=== PATIENT | female | born 1985 | race Caucasian/White ===

== ENCOUNTER 2018-12-16 16:39 | Emergency (ER) | payer BC, MEDICAID ==
[~2018-12-16] VITALS: Wt 60.0 kg
[~2018-12-16 16:39] MED LIST: CALC1TAB32 PO; FERR-55 PO; FOLI-49 PO; IBUP-1542 PO; PREN1TAB49 PO
[2018-12-16 16:41] VITALS: BP 160/63; PULSE 64; RESP 18
[2018-12-16] MEDS ORDERED: HYDROCODONE/APAP (5/325) TAB PO ONE (17:30)
[2018-12-16] MEDS ORDERED: KETOROLAC 60 MG INJ IM STA (19:02)
[2018-12-16] MEDS ORDERED: NAPR-985 PO (19:04)
--- NOTE | 2018-12-21 23:15 | ERD ---
ER Documentation Chief Complaint Chief Complaint back pain after a fall HPI 33-year-old female patient with no sniffing past medical history presents to ED complaining of back after accidentally falling off the first lateral, rolled she was cleaning. States that she accidentally slipped and injuring the left side of her lower back. Denies any chest pain, shortness of breath, nausea, vomiting, diarrhea, neck stiffness. Denies any head or neck injuries. Describes her pain as sharp and rates it a 9/10. . ROS All systems reviewed and are negative except as per history of present illness. Medications Home Meds Active Scripts Naproxen* (Naprosyn*) 500 Mg Tablet, 500 MG PO BID PRN for PAIN AND/OR INFLAMMATION, #30 TAB Prov:KAVON LIMON PA-C 12/16/18 Ibuprofen* (Motrin*) 600 Mg Tab, 600 MG PO Q6 PRN for PAIN, #30 TAB Prov:YASEMIN BOOGIE PA-C 12/27/15 Reported Medications Calcium/Vitamin D (Oyst-Camacho-D 500) 1 Tab Tab, 1 TAB PO DAILY 10/06/11 Folic Acid* (Folic Acid*) 1 Mg Tablet, 1 MG PO DAILY 10/06/11 Ferrous Sulfate* (Ferrous Sulfate*) 325 Mg Tablet, 325 MG PO DAILY 10/06/11 Vits W-Ca,Fe,Fa(<1MG) () 1 Tab Tablet, 1 TAB PO DAILY 10/06/11 Allergies Allergies: Coded Allergies: No Known Allergy (Unverified , 10/06/11) PMhx/Soc History of Surgery: No Anesthesia Reaction: No Hx Neurological Disorder: No Hx Respiratory Disorders: No Hx Cardiac Disorders: No Hx Psychiatric Problems: No Hx Miscellaneous Medical Probl: No Hx Alcohol Use: No Hx Substance Use: No Hx Tobacco Use: No Smoking Status: Never smoker FmHx Family History: No diabetes, No coronary disease Physical Exam Vitals Temp 97.7 Pulse 64 Resp 18 SBP 160 DBP 63 Pulse Ox 97 Physical Exam Const: [id number], well-nourished. In no acute distress. Head: Atraumatic, normocephalic Eyes: Normal Conjunctiva without injection. No purulent discharge. ENT: Normal external ear, nose. Moist oropharynx without tonsillar exudates. Non-erythematous pharynx. Uvula midline. No drooling. No trismus. Neck: No cervical midline tenderness. Full range of motion. No meningismus. No cervical lymphadenopathy. No JVD. Resp: Clear to auscultation bilaterally. No wheezing, rhonchi, rales, or crackles. No accessory muscle use. No retractions. Cardio: Regular rate and rhythm. No murmurs, rubs or gallops. Abd: Soft, nontender, non distended. Normal bowel sounds. No palpable masses. No rebound tenderness. No guarding. Negative McBurney's point. Negative psoas sign. Negative obturator sign. Skin: No petechiae or rashes Back: Slight L3-4 midline tenderness. No CVA tenderness. Tender to palpation of right lumbar muscles. Ext: No cyanosis, or edema. Neur: Awake and alert. Normal gait. Normal coordination. Psych: Normal Mood and Affect Results 24 hrs Laboratory Tests Test 12/16/18 17:34 12/16/18 17:36 POC Beta HCG, Qualitative NEGATIVE Urine Color YELLOW Urine Clarity SLIGHTLY CLOUDY Urine pH 6.0 Urine Specific [place] 1.011 Urine Ketones NEGATIVE mg/dL Urine Nitrite NEGATIVE mg/dL Urine Bilirubin NEGATIVE mg/dL Urine Urobilinogen NEGATIVE mg/dL Urine Leukocyte Esterase NEGATIVE [place]/ul Urine Microscopic RBC 1 /HPF Urine Microscopic WBC 0 /HPF Urine Amorphous Crystals FEW /HPF Urine Bacteria FEW /HPF Urine Hemoglobin NEGATIVE mg/dL Urine Glucose NEGATIVE mg/dL Urine Total Protein NEGATIVE mg/dl Current Medications Medications Dose Sig/Eitan Start Time Status Last (Trade) Ordered Route PRN Stop Time Admin Dose Reason Admin 1 tab ONCE ONCE 12/16/18 DC 12/16/18 Acetaminophen PO 17:30 12/16/18 17:48 / 17:31 Hydrocodone Bitart ([place] (5/325)) Ketorolac 60 mg ONCE STAT 12/16/18 DC 12/16/18 Tromethamine IM 19:02 12/16/18 19:07 (Toradol) 19:03 Procedures/MDM 33-year-old female patient with history presents to ED complaining of right lower back injury that occurred after she was trying to clean the window as she stepped on the ladder. Patient treated here in the ED with [place] 5-325 mg and Toradol 60 mg IM with improvement of her symptoms. Patient is afebrile and nontoxic-appearing. Patient's blood pressure is 160/63. Blood Pressure Assessment: Patient's blood pressure was elevated (>120/80) but appears stable without evidence of hypertension emergency or urgency. The patient was counseled about the risks of hypertension and urged to pursue outpatient monitoring and therapy within a week with their primary care physician. IMPRESSION: Unremarkable lumbar spine. Patient likely sustained a back contusion vs strain. Patient is ambulating here in the ED without difficulty. Denies saddle anesthesia, numbness or tingling, urine or bowel incontinence, weakness. Low suspicion for cauda equina syndrome, cord compression, nephrolithiasis, aortic aneurysm, aortic dissection, epidural abscess, spinal hematoma, malignancy, pyelonephritis, or other emergent conditions. Diagnosis: Injury of Low Back Discharge medications: Naproxen Follow up with primary care physician in 1-2 days. Instructed patient to return to the ED sooner for any worsening symptoms. Patient's questions were answered. Patient is hemodynamically stable. Patient understood and agreed with discharge plan. Patient discharged stable. Disclaimer: Inadvertent spelling and grammatical errors are likely due to EHR/dictation software use and do not reflect on the overall quality of patient care. Also, please note that the electronic time recorded on this note does not necessarily reflect the actual time of the patient encounter. Departure Diagnosis: Primary Impression: Injury of low back Encounter type: initial encounter Qualified Codes: S39.92XA - Unspecified injury of lower back, initial encounter Condition: Stable Patient Instructions: Back Pain (Acute Or Chronic), Contusion, Back Referrals: [facility] YOU HAVE RECEIVED A MEDICAL SCREENING EXAM AND THE RESULTS INDICATE THAT YOU DO NOT HAVE A CONDITION THAT REQUIRES URGENT TREATMENT IN THE EMERGENCY DEPARTMENT. FURTHER EVALUATION AND TREATMENT OF YOUR CONDITION CAN WAIT UNTIL YOU ARE SEEN IN YOUR DOCTORS OFFICE WITHIN THE NEXT 1-2 DAYS. IT IS YOUR RESPONSIBILITY TO MAKE AN APPOINTMENT FOR FOLOW-UP CARE. IF YOU HAVE A PRIMARY DOCTOR --you should call your primary doctor and schedule an appointment IF YOU DO NOT HAVE A PRIMARY DOCTOR YOU CAN CALL OUR PHYSICIAN REFERRAL HOTLINE AT IF YOU CAN NOT AFFORD TO SEE A PHYSICIAN YOU CAN CHOSE FROM THE FOLLOWING [facility] [address] [facility]. [facility] [address] [facility] [facility] [address] [facility] [address] [facility]. [facility] [address] [facility]. [facility]. [address] [facility]. [facility] YOU HAVE RECEIVED A MEDICAL SCREENING EXAM AND THE RESULTS INDICATE THAT YOU DO NOT HAVE A CONDITION THAT REQUIRES URGENT TREATMENT IN THE EMERGENCY DEPARTMENT. FURTHER EVALUATION AND TREATMENT OF YOUR CONDITION CAN WAIT UNTIL YOU ARE SEEN IN YOUR DOCTORS OFFICE WITHIN THE NEXT 1-2 DAYS. IT IS YOUR RESPONSIBILITY TO MAKE AN APPOINTMENT FOR FOLOW-UP CARE. IF YOU HAVE A PRIMARY DOCTOR --you should call your primary doctor and schedule and appointment IF YOU DO NOT HAVE A PRIMARY DOCTOR YOU CAN CALL OUR PHYSICIAN REFERRAL HOTLINE AT . IF YOU CAN NOT AFFORD TO SEE A PHYSICIAN YOU CAN CHOSE FROM THE FOLLOWING [facility]: [facility] [address] [place] [address] [facility] [address] [place] [address] [facility] [address] [place] [address] [facility] URGENT CARE/SPECIALTIES Additional Instructions: Call your primary care doctor TOMORROW for an appointment during the next 2-3 days.See the doctor sooner or return here if your condition worsens before your appointment time. KAVON LIMON PA-C December 21, 2018 23:01
== END 2018-12-16 21:00 | disposition home or self-care (01) ==
LOC: FTE 16:39
DX: S39.92XA Unspecified injury of lower back, initial encounter (principal); W01.0XXA Fall on same level from slipping, tripping and stumbling without subsequent striking against object, initial encounter; Y92.9 Unspecified place or not applicable
CPT/HCPCS: 72100; 81001; 81025; 96372; 99284; J1885; 81003